=== PATIENT | female | born 1970 | race Caucasian/White ===

== ENCOUNTER 2017-09-12 13:30 | Emergency (ER) | payer MEDICAID ==
[~2017-09-12] VITALS: Ht 165.1 cm; Wt 54.4 kg
--- NOTE | 2017-09-12 14:10 | NUR ---
PT BIB WITH A C/O FLU LIKE SYMPTOMS. PT IS C/O CHILLS, NON PRODUCTIVE COUGH, GENERALIZED BODY ACHES, AND "LUNGS FEEL FUNNY". PT IS AFEBRILE AND O2 SAT 100%. PT IS ON THE MONITOR AND CONTINUOUS PULSE OX. VSS. RESP EVEN AND UNLABORED.
[2017-09-12] MEDS ORDERED: IV NS 0.9% 1,000 ML BAG IV ONE (14:30)
[2017-09-12 14:33] LABS: APPEARANCE,URINE CLEAR (CLEAR); BILIRUBIN,URINE NEGATIVE (NEGATIVE); BLOOD, URINE TRACE-INTA Ery/uL (NEGATIVE); COLOR,URINE YELLOW (YELLOW); KETONES,URINE TRACE (NEGATIVE); LEUKOCYTE ESTERASE ,URINE NEGATIVE (NEGATIVE); NITRITE, URINE NEGATIVE (NEGATIVE); PH,URINE 7.5 (5.0-8.0); PROTEIN,URINE NEGATIVE (NEGATIVE); UGLUCOSE NEGATIVE (NEGATIVE); UROBILINOGEN,URINE 0.2 EU/dL (0.2)
[2017-09-12 14:53] LABS: BACTERIA,URINE None seen /HPF (None Seen); RBC,URINE 0-2 /HPF (0-2); SQUAMOUS EPITHELIAL CELL,UR Few /HPF (None Seen); WBC,URINE 0-2 /HPF (0-3)
[2017-09-12] MEDS ORDERED: ONDANSETRON HCL/PF 4 MG/2 ML VIAL ONE (15:08)
--- NOTE | 2017-09-12 15:10 | NUR ---
PT REC'D MEDICATION ORDERED.
[2017-09-12] MEDS ORDERED: ONDANSETRON HCL/PF 4 MG/2 ML VIAL IV ONE (15:30)
--- NOTE | 2017-09-12 15:31 | NUR ---
Patient discharged to home in stable condition. Written and verbal after care instructions given. Patient verbalizes understanding of instruction AND RX. IV removed. Catheter intact and site benign. Pressure and 4x4 applied to site. No bleeding noted. PT'S DAUGHTER IS DRIVING PT HOME. VSS.
[2017-09-12 15:37] VITALS: BP 115/61
== END 2017-09-12 15:37 | disposition home or self-care (01) ==
LOC: ER 13:31
DX: B34.9 Viral infection, unspecified (principal); E86.0 Dehydration; F17.200 Nicotine dependence, unspecified, uncomplicated
CPT/HCPCS: 71045; 81001; 84703; 99285; 99406; A4606 ×2; J7030; Z7610; 81000-TC; J2405

== ENCOUNTER 2020-01-13 15:45 | Emergency (ER) | payer MEDICAID, OTHER ==
[~2020-01-13] VITALS: Ht 152.4 cm; Wt 43.1 kg
--- NOTE | 2020-01-13 15:56 | NUR ---
came in for chest discomfort, sob for "weeks" now, describes discomfort as palpitations, to ER bed 9, hooked to meat market manager and pox, VSS, changed to hosp gown, warm blanket provided, patient aao x 4, breathing even and unlabored. awaiting MD zhao.
--- NOTE | 2020-01-13 16:09 | NUR ---
Dr Perez at bedside
[2020-01-13 17:03] LABS: BASOPHILS % (AUTO) 0.3 % (0.0-2.0); EOSINOPHILS % (AUTO) 0.7 % (0.0-6.0); HEMATOCRIT 41 % (33-45); HEMOGLOBIN 13.6 g/dL (11.5-14.8); LYMPHOCYTES # (AUTO) 1.4 /CMM (0.8-4.8); LYMPHOCYTES % (AUTO) 14.5 % (20.0-44.0); MEAN CORPUSCULAR HGB CONC 33 g/dl (31.0-36.0); MEAN CORPUSCULAR VOLUME 89 fL (82-100); MONOCYTES # (AUTO) 0.7 /CMM (0.1-1.30); MONOCYTES % (AUTO) 7.5 % (2.0-12.0); NEUTROPHILS # (AUTO) 7.5 /CMM (1.8-8.9); PLATELET COUNT (AUTO) 296 /CMM (150-450); WHITE BLOOD COUNT (AUTO) 9.8 K/uL (4.3-11.0)
[2020-01-13 17:10] LABS: CARBON DIOXIDE 30 mmol/L (21-32); CHLORIDE 107 mmol/L (98-107); GLUCOSE 107 mg/dL (74-106); POTASSIUM 3.4 mmol/L (3.5-5.1); SODIUM SERUM 143 mmol/L (136-145); UREA NITROGEN, BLOOD 19 mg/dL (7-18)
--- NOTE | 2020-01-13 17:58 | NUR ---
PATIENT IN BED AWAKE, COMFORTABLE IN BED, HOOKED TO MONITOR, BREATHING EVEN AND UNLABORED. WILL CONTINUE TO MONITOR ACCORDINGLY.
[2020-01-13] MEDS ORDERED: POTASSIUM CHLORIDE 20 MEQ TAB.PRT.SR PO ONE ×2 (17:59→18:00)
[2020-01-13 18:17] LABS: THYROID STIMULATING HORMONE 1.337 uIU/mL (0.358-3.74)
[2020-01-13 19:08] VITALS: BP 109/67
--- NOTE | 2020-01-13 19:08 | NUR ---
IV removed. Catheter intact and site benign. Pressure and 4x4 applied to site. No bleeding noted. Patient discharged to home in stable condition. will spanish moss picker patient from the hospital. Written and verbal after care instructions given. Patient verbalizes understanding of instruction.
== END 2020-01-13 19:09 | disposition home or self-care (01) ==
LOC: ER 15:45
DX: R06.00 Dyspnea, unspecified (principal); E87.6 Hypokalemia
CPT/HCPCS: 36415; 71045-TC; 80048-TC; 80305; 84439-TC; 84443-TC; 84484-TC; 85025-TC; 85378-TC

== ENCOUNTER 2021-08-10 17:45 | Emergency (ER) | payer MEDICAID ==
[~2021-08-10] VITALS: Ht 149.9 cm; Wt 39.9 kg
--- NOTE | 2021-08-10 17:55 | NUR ---
TO ER BED 3, C/O TINGLING SENSATION IN LEFT HAND AND FOOT SINCE YESTERDAY MORNING, DENIES WEAKNESS AND SOB, AAOX3, BREATHING EVEN AND NON LABORED, CONNECTED TO MONITOR, AWAITING MD RENE
[2021-08-10] MEDS ORDERED: ONDANSETRON HCL/PF 4 MG/2 ML VIAL ONE (18:17)
[2021-08-10] MEDS ORDERED: diphenhydrAMINE HCL 50 MG/ML VIAL ONE (18:17)
--- NOTE | 2021-08-10 18:20 | NUR ---
PT TO RADIOLOGY FOR HEAD CT SCAN VIA [facility].
--- NOTE | 2021-08-10 18:25 | NUR ---
PT RETURNED TO ER BED [address]
[2021-08-10] MEDS ORDERED: ONDANSETRON HCL/PF 4 MG/2 ML VIAL IVP ONE (18:30)
[2021-08-10] MEDS ORDERED: diphenhydrAMINE HCL 50 MG/ML VIAL IV ONE (18:30)
[2021-08-10] MEDS ORDERED: IV NS 0.9% 1,000 ML BAG IV ONE (18:30)
--- NOTE | 2021-08-10 18:37 | NUR ---
POC BS 116
--- NOTE | 2021-08-10 18:43 | NUR ---
RAC #20G S/L; PATENT AND INTACT
--- NOTE | 2021-08-10 18:49 | NUR ---
URINE COLLECTED AND SENT TO LAB
[2021-08-10 19:28] LABS: CALCIUM, SERUM 9.5 mg/dL (8.5-10.1); CARBON DIOXIDE 24 mmol/L (21-32); CHLORIDE 101 mmol/L (98-107); GLUCOSE 110 mg/dL (74-106); POTASSIUM 3.4 mmol/L (3.5-5.1); SODIUM SERUM 140 mmol/L (136-145); UREA NITROGEN, BLOOD 13 mg/dL (7-18)
[2021-08-10 19:40] LABS: ALANINE AMINOTRANSFERASE 14 U/L (12-78); ALBUMIN 4.5 g/dL (3.4-5.0); ALKALINE PHOSPHATASE 56 U/L (46-116); ASPARTATE AMINOTRANSFERASE 10 U/L (15-37); BILIRUBIN,DIRECT 0.1 mg/dL (0.0-0.2); BILIRUBIN,TOTAL 0.3 mg/dL (0.2-1.0); TOTAL PROTEIN, SERUM 8.3 g/dL (6.4-8.2)
[2021-08-10 19:52] LABS: BASOPHILS % (AUTO) 0.4 % (0.0-2.0); EOSINOPHILS % (AUTO) 0.1 % (0.0-6.0); HEMATOCRIT 48 % (33-45); HEMOGLOBIN 16.4 g/dL (11.5-14.8); LYMPHOCYTES # (AUTO) 1.4 K/uL (0.8-4.8); LYMPHOCYTES % (AUTO) 22.1 % (20.0-44.0); MEAN CORPUSCULAR HGB CONC 34 g/dl (31.0-36.0); MEAN CORPUSCULAR VOLUME 90 fL (82-100); MONOCYTES # (AUTO) 0.7 K/uL (0.1-1.30); MONOCYTES % (AUTO) 10.6 % (2.0-12.0); NEUTROPHILS # (AUTO) 4.2 K/uL (1.8-8.9); NEUTROPHILS % (AUTO) 66.8 % (43.0-81.0); PLATELET COUNT (AUTO) 318 K/uL (150-450); RED BLOOD CELL COUNT(AUTO) 5.39 MIL/uL (4.0-5.2); WHITE BLOOD COUNT (AUTO) 6.3 K/uL (4.3-11.0)
[2021-08-10 20:16] LABS: BILIRUBIN,URINE NEGATIVE (NEGATIVE); COLOR,URINE YELLOW (YELLOW); LEUKOCYTE ESTERASE ,URINE NEGATIVE (NEGATIVE); NITRITE, URINE NEGATIVE (NEGATIVE); PROTEIN,URINE NEGATIVE (NEGATIVE); UGLUCOSE NEGATIVE (NEGATIVE); UROBILINOGEN,URINE 0.2 EU/dL (0.2)
[2021-08-10 20:46] LABS: BACTERIA,URINE None seen /HPF (None Seen); RBC,URINE 0-2 /HPF (0-2); SQUAMOUS EPITHELIAL CELL,UR 0-2 /HPF (None Seen); WBC,URINE 0-2 /HPF (0-3)
--- NOTE | 2021-08-10 21:02 | NUR ---
Patient discharged to home in stable condition. Written and verbal after care instructions given. Patient verbalizes understanding of instruction. Pt IV line discontinued without complication
[2021-08-10 21:30] VITALS: BP 143/93
== END 2021-08-10 21:31 | disposition home or self-care (01) ==
LOC: ER 17:48
DX: F43.9 Reaction to severe stress, unspecified (principal); E86.0 Dehydration
CPT/HCPCS: 36415; 70450; 71045; 80048; 80076; 81001; 82962; 84484; 85025; 93005; 96360; 99285; J1200; J7030 ×2; J2405

== ENCOUNTER 2022-01-18 19:24 | Emergency (ER) | payer MEDICAID ==
[~2022-01-18] VITALS: Ht 162.6 cm; Wt 44.0 kg
--- NOTE | 2022-01-18 19:36 | NUR ---
TO ER BED 9, BIBS C/O ABDOMINAL PAIN STARTED TODAY, NAUSEA AND VOMITING, AAOX3, BREATHING EVEN AND NON LABORED, CONNECTED TO MONITOR, AWAITING MD ORDERS
--- NOTE | 2022-01-18 19:43 | NUR ---
URINE COLLECTED AND SENT TO LAB
[2022-01-18] MEDS ORDERED: FAMOTIDINE/PF INJ 20 MG/2 ML VIAL IV ONE ×2 (19:56→20:00)
[2022-01-18] MEDS ORDERED: ONDANSETRON HCL/PF 4 MG/2 ML VIAL ONE (19:56)
[2022-01-18] MEDS ORDERED: MAG HYDROX/AL HYDROX/SIMETH 30 ML UDC ONE (19:56)
[2022-01-18] MEDS ORDERED: MAG HYDROX/AL HYDROX/SIMETH 30 ML UDC PO ONE (20:00)
[2022-01-18] MEDS ORDERED: ONDANSETRON HCL/PF 4 MG/2 ML VIAL IVP ONE (20:00)
[2022-01-18] MEDS ORDERED: IV NS 0.9% 1,000 ML BAG IV ONE (20:00)
--- NOTE | 2022-01-18 20:14 | NUR ---
IV LINE ESTABLISHED, RHAND 20G. BLOOD COLLECTED AND SENT TO LAB
[2022-01-18 20:35] LABS: BASOPHILS % (AUTO) 0.3 % (0.0-2.0); EOSINOPHILS % (AUTO) 0.1 % (0.0-6.0); HEMATOCRIT 43 % (33-45); HEMOGLOBIN 14.4 g/dL (11.5-14.8); LYMPHOCYTES # (AUTO) 1.6 K/uL (0.8-4.8); LYMPHOCYTES % (AUTO) 9.5 % (20.0-44.0); MEAN CORPUSCULAR HGB CONC 33 g/dl (31.0-36.0); MEAN CORPUSCULAR VOLUME 87 fL (82-100); MONOCYTES # (AUTO) 0.9 K/uL (0.1-1.30); MONOCYTES % (AUTO) 5.6 % (2.0-12.0); NEUTROPHILS % (AUTO) 84.5 % (43.0-81.0); PLATELET COUNT (AUTO) 296 K/uL (150-450); RED BLOOD CELL COUNT(AUTO) 5.01 MIL/uL (4.0-5.2); WHITE BLOOD COUNT (AUTO) 16.6 K/uL (4.3-11.0)
[2022-01-18 20:36] LABS: BILIRUBIN,URINE NEGATIVE (NEGATIVE); COLOR,URINE YELLOW (YELLOW); LEUKOCYTE ESTERASE ,URINE SMALL (NEGATIVE); NITRITE, URINE NEGATIVE (NEGATIVE); PROTEIN,URINE NEGATIVE (NEGATIVE); UGLUCOSE NEGATIVE (NEGATIVE); UROBILINOGEN,URINE 0.2 EU/dL (0.2)
[2022-01-18 20:38] LABS: CALCIUM, SERUM 9.2 mg/dL (8.5-10.1); CREATININE 0.8 mg/dL (0.6-1.3)
[2022-01-18 20:44] LABS: BILIRUBIN,DIRECT 0.1 mg/dL (0.0-0.2); BILIRUBIN,TOTAL 0.4 mg/dL (0.2-1.0); TOTAL PROTEIN, SERUM 7.3 g/dL (6.4-8.2)
[2022-01-18 20:46] LABS: BACTERIA,URINE 1+ /HPF (None Seen); SQUAMOUS EPITHELIAL CELL,UR Few /HPF (None Seen); WBC,URINE 0-2 /HPF (0-3)
[2022-01-18] MEDS ORDERED: CEFTRIAXONE 1GM BAG (ER ONLY) 50 ML IV ONE ×2 (20:55→21:00)
--- NOTE | 2022-01-18 21:01 | NUR ---
XRAY AT BEDSIDE
--- NOTE | 2022-01-18 21:19 | NUR ---
ADDENDUM: Intravenous End Time Documentation: Rocephin 1 gram IVPB: start time: 2118 pm; end time: 2148 pm IV site: PIV # 20 Port # 2
--- NOTE | 2022-01-18 21:40 | NUR ---
LACTIC ACID 2.2
[2022-01-19] MEDS ORDERED: ONDA4TAB5 PO (00:16)
--- NOTE | 2022-01-19 00:37 | NUR ---
Patient discharged to home in stable condition. Written and verbal after care instructions given. Patient verbalizes understanding of instruction.
[2022-01-19 00:40] VITALS: BP 129/80
== END 2022-01-19 00:41 | disposition home or self-care (01) ==
LOC: ER 19:28
DX: R10.13 Epigastric pain (principal); R11.2 Nausea with vomiting, unspecified; Z79.899 Other long term (current) drug therapy
CPT/HCPCS: 36415; 71046; 74176; 80048; 80076; 81001; 83605 ×2; 83690; 84703; 85025; 87040 ×2; 87086; 96361; 96365; 96375; 99285; J0696; J2405; J3490; J7030

== ENCOUNTER 2022-05-28 17:19 | Emergency (ER) | payer MEDICAID ==
[~2022-05-28] VITALS: Ht 152.4 cm; Wt 43.1 kg
[~2022-05-28 17:19] MED LIST: ONDA4TAB5 PO
--- NOTE | 2022-05-28 21:59 | NUR ---
URINE COLLECTED AND SENT TO LAB
[2022-05-28] MEDS ORDERED: MAG HYDROX/AL HYDROX/SIMETH 30 ML UDC ONE (22:25)
[2022-05-28] MEDS ORDERED: ONDANSETRON HCL/PF 4 MG/2 ML VIAL ONE (22:25)
[2022-05-28] MEDS ORDERED: FAMOTIDINE/PF INJ 20 MG/2 ML VIAL IV ONE ×2 (22:26→22:30)
[2022-05-28] MEDS ORDERED: LIDOCAINE VISCOUS 2% UD 15 ML UDC ONE (22:26)
[2022-05-28] MEDS ORDERED: IV NS 0.9% 500 ML BAG IV ONE (22:30)
[2022-05-28] MEDS ORDERED: ONDANSETRON HCL/PF 4 MG/2 ML VIAL IVP ONE (22:30)
[2022-05-28] MEDS ORDERED: LIDOCAINE VISCOUS 2% UD 15 ML UDC MM ONE (22:30)
[2022-05-28] MEDS ORDERED: MAG HYDROX/AL HYDROX/SIMETH 30 ML UDC PO ONE (22:30)
[2022-05-28 22:49] LABS: BASOPHILS % (AUTO) 0.1 % (0.0-2.0); EOSINOPHILS % (AUTO) 0.2 % (0.0-6.0); HEMATOCRIT 44 % (33-45); HEMOGLOBIN 14.4 g/dL (11.5-14.8); LYMPHOCYTES # (AUTO) 0.4 K/uL (0.8-4.8); LYMPHOCYTES % (AUTO) 2.3 % (20.0-44.0); MEAN CORPUSCULAR HGB CONC 33 g/dl (31.0-36.0); MEAN CORPUSCULAR VOLUME 88 fL (82-100); MONOCYTES # (AUTO) 0.2 K/uL (0.1-1.30); NEUTROPHILS # (AUTO) 16.4 K/uL (1.8-8.9); NEUTROPHILS % (AUTO) 96.4 % (43.0-81.0); PLATELET COUNT (AUTO) 287 K/uL (150-450); RED BLOOD CELL COUNT(AUTO) 4.98 MIL/uL (4.0-5.2)
[2022-05-28 23:02] LABS: CALCIUM, SERUM 8.9 mg/dL (8.5-10.1); CREATININE 0.9 mg/dL (0.6-1.3)
[2022-05-28 23:04] LABS: BILIRUBIN,URINE NEGATIVE (NEGATIVE); COLOR,URINE YELLOW (YELLOW); LEUKOCYTE ESTERASE ,URINE NEGATIVE (NEGATIVE); NITRITE, URINE NEGATIVE (NEGATIVE); PH,URINE 5.5 (5.0-8.0); PROTEIN,URINE 30 mg/dl (NEGATIVE); UGLUCOSE NEGATIVE (NEGATIVE); UROBILINOGEN,URINE 0.2 EU/dL (0.2)
[2022-05-28 23:06] LABS: BACTERIA,URINE Rare /HPF (None Seen); HYALINE CASTS, URINE Few /LPF (None Seen); SQUAMOUS EPITHELIAL CELL,UR Few /HPF (None Seen)
[2022-05-28 23:08] LABS: ALBUMIN 3.9 g/dL (3.4-5.0); BILIRUBIN,DIRECT 0.2 mg/dL (0.0-0.2); BILIRUBIN,TOTAL 0.7 mg/dL (0.2-1.0); TOTAL PROTEIN, SERUM 7.3 g/dL (6.4-8.2)
[2022-05-28] MEDS ORDERED: ONDA4TAB5 PO (23:56)
[2022-05-28] MEDS ORDERED: OMEP20CA15 PO (23:56)
--- NOTE | 2022-05-29 00:33 | NUR ---
Patient discharged to home in stable condition. Written and verbal after care instructions given. Patient verbalizes understanding of instruction. IV removed. Catheter intact and site benign. Pressure and 4x4 applied to site. No bleeding noted. pt ambulatory with a steady gait
[2022-05-29 00:34] VITALS: BP 112/58
== END 2022-05-29 00:45 | disposition home or self-care (01) ==
LOC: ER 17:19
DX: K29.70 Gastritis, unspecified, without bleeding (principal); R10.13 Epigastric pain; R11.2 Nausea with vomiting, unspecified; Z79.899 Other long term (current) drug therapy
CPT/HCPCS: 99284; 96374; 96361; 96375; 93005; 85025; 80048; 83690; 80076; 81001; 36415; J3490; J2405; J7040